=== PATIENT | male | born 1950 | race Hispanic/Latino ===

== ENCOUNTER → 2018-09-22 | Outpatient (CLI) | payer OTHER | END | disposition home or self-care (01) | LOC: RAH 11:48 | PROVIDERS: ATTEND Internal Medicine Critical Care Medicine | DX: M79.604 Pain in right leg (principal) | CPT/HCPCS: 93970 ==

== ENCOUNTER → 2018-10-06 | Outpatient (CLI) | payer OTHER ==
[~2018-10-06] MED LIST: IOHEXOL-350 50ML VIAL IV ONE; IOHEXOL-350 75 ML VIAL IV ONE
== END | disposition home or self-care (01) ==
LOC: RAH 10:43
PROVIDERS: ATTEND Internal Medicine Critical Care Medicine
DX: I72.3 Aneurysm of iliac artery (principal); I70.0 Atherosclerosis of aorta; I74.3 Embolism and thrombosis of arteries of the lower extremities
CPT/HCPCS: 75635; Q9967 ×2